=== PATIENT | male | born 1990 | race Caucasian/White ===

== ENCOUNTER 2017-10-02 15:37 | Emergency (ER) | payer OTHER ==
[2017-10-02 15:51] VITALS: BP 140/104; PULSE 88; RESP 16; TEMP 97.9; O2SAT 96
[2017-10-02] MEDS ORDERED: LET GEL TOPICAL 1 EA SYR TP ONE (15:57)
[2017-10-02] MEDS ORDERED: SKIN ADHESIVE (DERMABOND) 1 EACH TP ONE (15:59)
--- NOTE | 2017-10-02 16:39 | EDPHY ---
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 The patient was using an [employer] knife in the process of building a laser. The patient reports mild bleeding and 2/10 pain to the left index finger tip site of laceration. The bleeding stopped with direct pressure. The incident occurred shortly prior to arrival. No other injuries. ROS: Neuro: No numbness or tingling the affected finger. Vascular: No pallor to the affected finger Musculoskeletal: No difficulty moving the affected finger. 5 point ROS is otherwise negative Past Medical/Surgical History: Patient thinks his last tetanus was more than 7 years ago. Otherwise healthy Smoking Status: Never smoked Physical Exam: Physical Exam Vital signs are normal. General: No acute distress Cardiac: Brisk capillary refill is intact throughout. Skin: No rash or pallor. Extremities: Notable for left index finger exam reveals a 1 cm well- approximated laceration to the volar aspect distal [id number] laceration. No active bleeding. No foreign bodies and direct examination. Minimal subcutaneous exposure. Neuro: Alert with no sensorimotor deficits in the affected digit. Constitutional: Initial Vital Signs Temperature (C) 36.6 C 10/02/17 15:49 Heart Rate 88 10/02/17 15:49 Respiratory Rate 16 10/02/17 15:49 Blood Pressure 140/104 H 10/02/17 15:49 O2 Sat (%) 96 10/02/17 15:49 O2 Delivery Mode Room Air Allergies/Adverse Reactions: penicillin V potassium [From Pen-Vee K] Allergy (Intermediate, Verified 15:49) Hives Home Medications: Medication Instructions Recorded NK [No Known Home Meds] 10/02/17 MDM/Departure - MDM Procedures: Dermabond closure: After verbal consent and let gel solution, the wound was clean by our tech using baby shampoo and water. Under sterile conditions I closed the wound with Dermabond with good tissue approximation, hemostasis and cosmesis. Patient tolerated this well. The patient is then placed in a stax splint by our tech to protect the wound. I counseled patient regarding his injury. Medications Given: Discontinued Medications Diphtheria/Tetanus/Acell Pertussis (Boostrix) 0.5 ml IM .ONCE ONE Stop: 11/27/17 16:46 Last Admin: 10/02/17 16:53 Dose: 0.5 ml Tetracaine/Epinephrine/Lidocaine (Let Gel Topical) 1 ea TP EDNOW ONE Stop: 10/02/17 15:58 Last Admin: 10/02/17 16:08 Dose: 1 ea ED Course/Re-evaluation: Discussion: Uncomplicated minor laceration to the finger without evidence of neurovascular compromise closed with Dermabond without complications. - Depart Disposition: Home, Routine, Self-Care Clinical Impression: Finger laceration Qualifiers: Encounter type: initial encounter Finger: index finger Damage to nail status: without damage Foreign body presence: without foreign body Laterality: left Qualified Code(s): S61.211A - Laceration without foreign body of left index finger without damage to nail, initial encounter Condition: Good Instructions: Skin Adhesive Care (ED) Additional Instructions: Diagnosis: Index finger laceration Plan: Avoid any ointment to the glue as this could dissolve the glue. It is okay to get it wet, but do not scrub the area. Typically the glue will fall off after 7-10 days and by then the wound should be healing underneath. Where the finger tip splint while at work to protect the finger tip. Limited use of affected finger until the finger heels. Recheck with work comp clinic in 5-7 days. Tylenol and/or ibuprofen for pain as needed. Return to the emergency department if he develops redness, or recurrent bleeding or other concerns Referrals: NONE *PRIMARY CARE P,. [Primary Care Provider] - As per Instructions
[2017-10-02] MEDS ORDERED: TDAP ADULT 0.5 ML INJ (BOOSTRIX) IM ONE (16:45)
== END 2017-10-02 17:02 | disposition home or self-care (01) ==
LOC: CED 15:37
PROC: 0HQGXZZ Repair Left Hand Skin, External Approach (ICD-10-PCS; principal; 2017-10-02)
DX: S61.211A Laceration without foreign body of left index finger without damage to nail, initial encounter (principal); Z23 Encounter for immunization; W26.0XXA Contact with knife, initial encounter; Y92.69 Other specified industrial and construction area as the place of occurrence of the external cause; Y99.0 Civilian activity done for income or pay; Y93.89 Activity, other specified
CPT/HCPCS: L3925